=== PATIENT | male | born 1995 | race Caucasian/White ===

== ENCOUNTER 2023-01-26 15:13 | Emergency (ER) | payer SELFPAY ==
[~2023-01-26 15:13] MED LIST: Iopamidol 300 61% 100 ML VIAL FS ONE
[2023-01-26] MEDS ORDERED: Ondansetron ODT 4 MG TAB ONE (16:24)
[2023-01-26] MEDS ORDERED: Mag-Al Plus 1200 MG/1200 MG/120 MG/30 ML UDCUP ONE (16:24)
[2023-01-26] MEDS ORDERED: Dicyclomine 20 MG/2 ML VIAL ONE (16:24)
[2023-01-26 16:38] LABS: Hematocrit 45.9 % (38.8-50.0); Hemoglobin 15.2 g/dL (13.5-17.5); Mean Corpuscular HGB CONC 33.1 g/dL (32.0-36.0); Mean Corpuscular Hemoglobin 28.3 pg (27.0-33.0); Mean Corpuscular Volume 85.3 fl (81.2-95.1); Mean Platelet Volume 9.6 fl (7.4-10.4); Platelet Count 323 10x3/uL (150-450); RBC Distribution Width 12.3 % (11.5-14.5); Red Blood Cell (RBC) Count 5.38 10x6/uL (4.32-5.72)
[2023-01-26 16:50] LABS: ALT (SGPT) 32 U/L (8-55); AST (SGOT) 15 U/L (5-34); Albumin 4.2 g/dL (3.5-5.0); Alkaline Phosphatase 61 U/L (40-110); Anion Gap 13 mmol/L (10-20); BUN (Urea Nitrogen) 18 mg/dL (8.9-20.6); Bilirubin, Total 0.4 mg/dL (0.2-1.2); Calc. Creatinine Clearance 0 mL/min (70-130); Calcium 9.7 mg/dL (7.8-10.44); Carbon Dioxide 23 mmol/L (22-29); Chloride 106 mmol/L (98-107); Estimated GFR 123; Globulin 2.7 g/dL (2.4-3.5); Glucose 114 mg/dL (70-105); Lipase 25 U/L (8-78); Potassium 3.8 mmol/L (3.5-5.1); Protein, Total 6.9 g/dL (6.0-8.3); Sodium 138 mmol/L (136-145)
[2023-01-26 17:13] LABS: Eosinophils 24 % (0-10); Lymphocytes 16 % (21-51); Monocytes 5 % (0-10); Reactive Lymphocytes 5 % (0-10)
[2023-01-26 17:19] LABS: Band 2 % (5-11); Neutrophil 48 % (42-75)
[2023-01-26 17:22] LABS: Platelet Adequacy Comment Appears Adequate; RBC Morph Comment Within Normal Limits
[2023-01-26 17:23] LABS: MDiff Complete? YES
[2023-01-26 17:36] LABS: Bilirubin Neg (Negative); Blood, Urine Negative (Negative); Clarity Clear (Clear); Glucose, Urine (Dipstick) Normal (Negative); Ketone, Urine Negative (Negative); Leukocyte Negative (Negative); Nitrite Negative (Negative); Protein, Urine (Dipstick) 15 mg/dl (Neg-Trace); Urobilinogen Normal mg/dL (Less than 2); pH, Urine 6.5 (5.0-9.0)
[2023-01-26 18:06] LABS: Bacteria/HPF None Seen HPF (None Seen); CAUTI Indications for Culture Dysuria,urgency,freq; RBC/HPF None Seen HPF (0-3); Squamous Epithelial None Seen HPF (0-3); WBC/HPF None Seen HPF (0-3)
[2023-01-26 18:07] LABS: Urine Culture Reflex No No
== END 2023-01-26 18:25 | disposition home or self-care (01) ==
LOC: CSHERS 15:13
DX: I88.0 Nonspecific mesenteric lymphadenitis (principal); F17.290 Nicotine dependence, other tobacco product, uncomplicated
CPT/HCPCS: 74177; 80053; 81001; 83690; 85025; 96372; Q0162; Q9967

== ENCOUNTER 2023-10-21 20:52 | Emergency (ER) | payer SELFPAY | END 2023-10-22 00:39 | disposition home or self-care (01) | LOC: CSHERS 20:52 | DX: K29.70 Gastritis, unspecified, without bleeding (principal); F17.290 Nicotine dependence, other tobacco product, uncomplicated | CPT/HCPCS: 76705; 80053; 83690; 85025 ==